=== PATIENT | female | born 1935 | race Caucasian/White ===

== ENCOUNTER → 2018-11-28 | Outpatient (CLI) | payer MEDICARE, OTHER ==
--- NOTE | 2018-11-28 11:01 | US ---
EXAMINATION TYPE: US carotid duplex BILAT DATE OF EXAM: 11/28/2018 COMPARISON: NONE CLINICAL HISTORY: I10 Hypertension, H53.2 Diplopia. Patient stated eye doctor stated she had eye musc le spasm. EXAM MEASUREMENTS: RIGHT: Peak Systolic Velocity (PSV) cm/sec ----- Right CCA: 70.2 ----- Right ICA: 92.1 ----- Right ECA: 49.1 ICA/CCA ratio: 1.3 RIGHT: End Diastole cm/sec ----- Right CCA: 12.1 ----- Right ICA: 16.1 ----- Right ECA: 0.0 LEFT: Peak Systolic Velocity (PSV) cm/sec ----- Left CCA: 60.1 ----- Left ICA: 74.7 ----- Left ECA: 44.8 ICA/CCA ratio: 1.2 LEFT: End Diastole cm/sec ----- Left CCA: 9.6 ----- Left ICA: 15.4 ----- Left ECA: 0.0 VERTEBRALS (direction of flow): Right Vertebral: Antegrade Left Vertebral: Antegrade Rhythm: Normal Irregular mixed plaque is present at bilateral carotid bifurcation, but PSV is wnl bilaterally. High resistive waveform is noted bilateral ICA suggesting distal cerebral bed disease. IMPRESSION: 1. There is concern for distal bilateral internal carotid artery stenosis as there are high resistanc e waveforms in the distal bilateral internal carotid arteries, not able to be visualized sonographica lly given its distal location. 2. No hemodynamically significant stenosis in the visualized portions of the common or internal carot id arteries. Criteria for Assigning % of Stenosis / Diameter reduction (Estimation based on the indirect measurements of the internal carotid artery velocities (ICA PSV). 1. Normal (no stenosis)=ICA PSV < 125 cm/s: ratio < 2.0: ICA EDV<40 cm/s. 2. Less than 50% stenosis=ICA PSV < 125 cm/s: ratio < 2.0: ICA EDV<40 cm/s. 3. 50 to 69% stenosis=ICA PSV of 125 to 230 cm/s: ration 2.0 ? 4.0: ICA EDV 40-100 cm/s. 4. Greater than 70% stenosis to near occlusion= ICA PSV > 230 cm/s: ratio > 4.0: ICA EDV > 100 cm/s. 5. Near occlusion= ICA PSV velocities may be low or undetectable: variable ratio and ICA EDV. 6. Total occlusion=unable to detect flow.
--- NOTE | 2018-11-28 12:00 | ECHOF ---
Referral Reason:I10 Hypertension, H53.2 Diplopia MEASUREMENTS -------- HEIGHT: 154.9 cm WEIGHT: 53.1 kg BP: RVIDd: 2.2 cm (< 3.3) IVSd: 1.0 cm (0.6 - 1.1) LVIDd: 3.7 cm (3.9 - 5.3) LVPWd: 1.1 cm (0.6 - 1.1) IVSs: 1.5 cm LVIDs: 2.4 cm LVPWs: 1.3 cm LAESV Index (A-L): 29.80 ml/m Ao Diam: 2.6 cm (2.0 - 3.7) AV Cusp: 1.5 cm (1.5 - 2.6) LA Diam: 3.6 cm (2.7 - 3.8) MV EXCURSION: 13.341 mm (> 18.000) MV EF SLOPE: 47 mm/s (70 - 150) EPSS: 0.9 cm MV E Osmel: 0.79 m/s MV DecT: 239 ms MV A Osmel: 1.07 m/s MV E/A Ratio: 0.74 AR PHT: 419 ms RAP: 5.00 mmHg RVSP: 36.82 mmHg FINDINGS -------- Sinus rhythm. This was a technically good study. The left ventricular size is normal. There is mild concentric left ventricular hypertrophy. Overa ll left ventricular systolic function is low-normal with, an EF between 50 - 55 %. Increased LAP Gr sabas 2 Diastolic Dysfunction. The right ventricle is normal in size. LA is midly dilated 29-33ml/m2. The right atrial size is normal. Interatrial and interventricular septum intact. Aortic valve is trileaflet and is mildly thickened. Trace amount of aortic regurgitation. The mitral valve is normal. Moderate mitral regurgitation is present , predominately a posteriorly directed jet. The tricuspid valve appears structurally normal. Mild tricuspid regurgitation present. There is b orderline pulmonary hypertension. There is no pulmonic regurgitation present. The aortic root size is normal. Normal inferior vena cava with normal inspiratory collapse consistent with estimated right atrial pre ssure of 5 mmHg. There is no pericardial effusion. CONCLUSIONS -------- 1. Sinus rhythm. 2. This was a technically good study. 3. The left ventricular size is normal. 4. There is mild concentric left ventricular hypertrophy. 5. Overall left ventricular systolic function is low-normal with, an EF between 50 - 55 %. 6. Increased LAP Grade 2 Diastolic Dysfunction. 7. The right ventricle is normal in size. 8. LA is midly dilated 29-33ml/m2. 9. The right atrial size is normal. 10. Interatrial and interventricular septum intact. 11. Aortic valve is trileaflet and is mildly thickened. 12. Trace amount of aortic regurgitation. 13. The mitral valve is normal. 14. Moderate mitral regurgitation is present. 15. , predominately a posteriorly directed jet. 16. The tricuspid valve appears structurally normal. 17. Mild tricuspid regurgitation present. 18. There is borderline pulmonary hypertension. 19. There is no pulmonic regurgitation present. 20. The aortic root size is normal. 21. Normal inferior vena cava with normal inspiratory collapse consistent with estimated right atrial pressure of 5 mmHg. 22. There is no pericardial effusion. BLOW MOLD TECHNICIAN: Cailin Mcintosh RDCS
== END | disposition home or self-care (01) ==
LOC: RADUSMAIN 08:36
PROVIDERS: ATTEND Family Medicine
DX: I11.9 Hypertensive heart disease without heart failure (principal); I08.1 Rheumatic disorders of both mitral and tricuspid valves; H53.2 Diplopia
CPT/HCPCS: 93306; 93880

== ENCOUNTER 2019-10-16 14:27 | Emergency (ER) | payer MEDICARE, OTHER ==
[2019-10-16 15:16] VITALS: TEMP 99
[2019-10-16] MEDS ORDERED: SODIUM CHLORIDE 0.9% 1,000 ML IV STA (15:50)
[2019-10-16] MEDS ORDERED: MECLIZINE 12.5 MG TAB PO STA (15:50)
--- NOTE | 2019-10-16 15:53 | ED ---
General Adult HPI - General Chief complaint: Recheck/Abnormal Lab/Rx Stated complaint: high blood pressure, dizzy Time Seen by Provider: 10/16/19 15:30 Source: patient, RN notes reviewed Mode of arrival: ambulatory Limitations: no limitations - History of Present Illness Initial comments: Patient is a pleasant 84-year-old female presenting to the emergency Department with complaints of lightheadedness. Patient states symptoms started 2 days ago. Patient states symptoms are present when she lays down and gets up to do anything. Otherwise patient does not feel lightheaded. Patient is currently symptom-free. Patient did go to her doctor's office today and have blood pressures between 140/70 and 200/100. No chest pain or dyspnea. No history of similar symptoms previously. - Related Data Allergies Allergy/AdvReac Type Severity Reaction Status Date / Time No Known Allergies Allergy Verified 10/16/19 15:16 Review of Systems ROS Statement: Those systems with pertinent positive or pertinent negative responses have been documented in the HPI. ROS Other: All systems not noted in ROS Statement are negative. Constitutional: Denies: fever Eyes: Denies: eye pain ENT: Denies: ear pain Respiratory: Denies: cough Cardiovascular: Denies: chest pain Endocrine: Denies: fatigue Gastrointestinal: Denies: abdominal pain Genitourinary: Denies: dysuria Musculoskeletal: Denies: back pain Skin: Denies: rash Neurological: Reports: as per HPI. Denies: headache, weakness, numbness, paresthesias, confusion, abnormal gait Past Medical History Past Medical History: Hypertension Additional Past Medical History / Comment(s): High Cholestrol. GERD. History of Any Multi-Drug Resistant Organisms: None Reported Past Surgical History: No Surgical Hx Reported Additional Past Surgical History / Comment(s): GI Obstruction - 70's. Parital Hysterctomy Smoking Status: Never smoker Past Alcohol Use History: None Reported Past Drug Use History: None Reported General Exam Limitations: no limitations General appearance: alert, in no apparent distress Head exam: Present: normocephalic Eye exam: Present: normal appearance, PERRL, EOMI, nystagmus ENT exam: Present: normal oropharynx, TM's normal bilaterally Neck exam: Present: normal inspection Respiratory exam: Present: normal lung sounds bilaterally Cardiovascular Exam: Present: regular rate, normal rhythm GI/Abdominal exam: Present: soft. Absent: tenderness Extremities exam: Present: normal inspection Neurological exam: Present: alert, oriented X3, CN II-XII intact. Absent: motor sensory deficit Expanded Neurological exam: Present: protecting the airway Patient oriented to: Present: person, place, time Speech: Present: fluid speech Cranial nerves: EOM's Intact: Normal Motor strength exam: RUE: 5, LUE: 5, RLE: 5, LLE: 5 Eye Response: (4) open spontaneously Motor Response: (6) obeys commands Verbal Response: (5) oriented Psychiatric exam: Present: normal affect, normal mood Skin exam: Present: normal color Course Vital Signs 10/16/19 10/16/19 15:12 16:03 Temperature 99.0 F Pulse Rate 76 Pulse Rate [ 75 Ex Chef ] Respiratory 18 18 Rate Blood Pressure 198/92 Blood Pressure 187/93 [Left Arm Sitting] Blood Pressure 181/91 [Left Arm Standing] Blood Pressure 190/97 [Left Arm Supine] O2 Sat by Pulse 75 L 95 Oximetry EKG Findings - EKG Comments: EKG Findings:: Normal sinus rhythm 71. DE 184. QRS 68. QT 32. QTC 4:15. Left axis. Normal QRS. No acute ST change. Medical Decision Making - Medical Decision Making Patient reevaluated and resting comfortably in bed. Patient states symptoms are mild and she does not feel she needs admission for further evaluation her head CT. Patient does request discharge home. Patient is advised to increase her by systolic by one half tab daily. Patient states she does have a Humberto to do this. Patient will follow-up with her doctor on Saturday as that is the next day there in the office and she has an appointment. Patient is advised she could use [id number] Antivert if needed. - Lab Data Result diagrams: 10/16/19 16:03 10/16/19 16:03 Lab Results 10/16/19 10/16/19 Range/Units 16:03 16:03 WBC 8.8 (3.8-10.6) k/uL RBC 4.19 (3.80-5.40) m/uL Hgb 13.4 (11.4-16.0) gm/dL Hct 39.8 (34.0-46.0) % MCV 95.0 (80.0-100.0) fL MCH 32.0 (25.0-35.0) pg MCHC 33.7 (31.0-37.0) g/dL RDW 11.8 (11.5-15.5) % Plt Count 193 (150-450) k/uL Neutrophils % 64 % Lymphocytes % 27 % Monocytes % 6 % Eosinophils % 1 % Basophils % 0 % Neutrophils # 5.7 (1.3-7.7) k/uL Lymphocytes # 2.3 (1.0-4.8) k/uL Monocytes # 0.5 (0-1.0) k/uL Eosinophils # 0.1 (0-0.7) k/uL Basophils # 0.0 (0-0.2) k/uL Sodium 138 (137-145) mmol/L Potassium 4.2 (3.5-5.1) mmol/L Chloride 102 (98-107) mmol/L Carbon Dioxide 25 (22-30) mmol/L Anion Gap 11 mmol/L BUN 19 H (7-17) mg/dL Creatinine 1.02 (0.52-1.04) mg/dL Est GFR (CKD-EPI)AfAm 59 (>60 ml/min/1.73 sqM) Est GFR (CKD-EPI)NonAf 51 (>60 ml/min/1.73 sqM) Glucose 105 H (74-99) mg/dL Calcium 10.4 H (8.4-10.2) mg/dL Total Bilirubin 0.9 (0.2-1.3) mg/dL AST 31 (14-36) U/L ALT 31 (4-34) U/L Alkaline Phosphatase 65 (38-126) U/L Total Protein 8.3 H (6.3-8.2) g/dL Albumin 5.2 H (3.5-5.0) g/dL Disposition Clinical Impression: Lightheadedness, Hypertension Disposition: HOME SELF-CARE Condition: Stable Instructions (If sedation given, give patient instructions): Hypertension (ED), Lightheadedness (ED) Additional Instructions: Please follow-up with Dr. Azeem Campbell as scheduled. [id number] Antivert if needed for dizziness. Please increased your by systolic by an additional half pill daily@noon. Return for confusion, weakness, increased lightheadedness or dizziness, falling, worsening symptoms or other concerns. Is patient prescribed a controlled substance at d/c from ED?: No Referrals: Brennen Gann MD [Primary Care Provider] - 1-2 days Time of Disposition: 16:43
[2019-10-16 16:17] LABS: Basophils % (A) 0 %; Eosinophils # (A) 0.1 k/uL (0-0.7); Eosinophils % (A) 1 %; HCT 39.8 % (34.0-46.0); HGB 13.4 gm/dL (11.4-16.0); Lymphocytes # (A) 2.3 k/uL (1.0-4.8); Lymphocytes % (A) 27 %; MCHC 33.7 g/dL (31.0-37.0); Mean Platelet Volume 7.5; Monocytes # (A) 0.5 k/uL (0-1.0); Monocytes % (A) 6 %; Neutrophils # (A) 5.7 k/uL (1.3-7.7); Neutrophils % (A) 64 %; Platelet Count 193 k/uL (150-450); RBC 4.19 m/uL (3.80-5.40); RDW 11.8 % (11.5-15.5); WBC 8.8 k/uL (3.8-10.6)
[2019-10-16 16:23] LABS: Albumin 5.2 g/dL (3.5-5.0); Calcium 10.4 mg/dL (8.4-10.2); Potassium 4.2 mmol/L (3.5-5.1); Total Bilirubin 0.9 mg/dL (0.2-1.3); Total Protein 8.3 g/dL (6.3-8.2)
[2019-10-16] MEDS ORDERED: NEBIVOLOL 5 MG TAB PO STA (16:37)
[2019-10-16 17:05] VITALS: BP 181/91; PULSE 80; RESP 16
[2019-10-16 17:16] LABS: Appearance,Urine Clear (Clear); Bilirubin,Urine Negative (Negative); Blood,Urine Negative (Negative); Color,Urine Light Yellow; Glucose,Urine (UA) Negative (Negative); Ketones,Urine Negative (Negative); Leukocyte Esterase,Urine Small (Negative); Mucus,Urine Rare /hpf; Nitrite,Urine Negative (Negative); Protein,Urine Negative (Negative); RBC,Urine <1 /hpf (0-5); Specific Gravity,Urine 1.004 (1.001-1.035); Urobilinogen,Urine <2.0 mg/dL (<2.0); WBC,Urine 2 /hpf (0-5)
== END 2019-10-16 17:19 | disposition home or self-care (01) ==
LOC: EC 14:27
DX: I10 Essential (primary) hypertension (principal); R42 Dizziness and giddiness
CPT/HCPCS: 36415; 80053; 81001; 85025; 93005; 96360; 99284

== ENCOUNTER 2020-03-27 12:07 | Emergency (ER) | payer MEDICARE, OTHER ==
[2020-03-27] MEDS ORDERED: SODIUM CHLORIDE 0.9% 1,000 ML IV STA (12:47)
[2020-03-27 13:24] LABS: Basophils # (A) 0.1 k/uL (0-0.2); Basophils % (A) 1 %; Eosinophils # (A) 0.1 k/uL (0-0.7); Eosinophils % (A) 1 %; HCT 37.8 % (34.0-46.0); HGB 13.3 gm/dL (11.4-16.0); Lymphocytes # (A) 1.8 k/uL (1.0-4.8); Lymphocytes % (A) 13 %; MCHC 35.2 g/dL (31.0-37.0); MCV 93.7 fL (80.0-100.0); Mean Platelet Volume 7.3; Monocytes # (A) 0.7 k/uL (0-1.0); Monocytes % (A) 5 %; Neutrophils # (A) 10.8 k/uL (1.3-7.7); Neutrophils % (A) 79 %; Platelet Count 199 k/uL (150-450); RBC 4.04 m/uL (3.80-5.40); RDW 11.7 % (11.5-15.5); WBC 13.7 k/uL (3.8-10.6)
[2020-03-27 13:33] LABS: Albumin 4.7 g/dL (3.5-5.0); Calcium 9.9 mg/dL (8.4-10.2); Potassium 3.9 mmol/L (3.5-5.1); Total Bilirubin 1.2 mg/dL (0.2-1.3); Total Protein 7.8 g/dL (6.3-8.2)
[2020-03-27 13:42] LABS: Partial Thromboplastin Time 25.3 sec (22.0-30.0); Prothrombin Time 10.7 sec (9.0-12.0)
--- NOTE | 2020-03-27 14:11 | ED ---
GI Bleed HPI - General Chief complaint: GI Bleed Stated complaint: rectal bleeding Time Seen by Provider: 03/27/20 12:25 Source: patient Mode of arrival: wheelchair Limitations: no limitations - History of Present Illness Initial comments: 85-year-old female with history of 2 bloody stools. Patient states she had some blood in her stool last night she stated she had another episode of blood in her stool this morning. Patient states this morning it seemed to be better. Patient said she's history of hemorrhoids. She denies history of hospitalizatio n for GI bleed. Patient denies any lightheadedness chest pain shortness of breath she denies any presyncope syncopal episodes. Patient denies any palpitations cold intolerance. Patient denies any nausea vomiting abdominal pains at the known history of diverticulosis or polyps. Patient states she has never had a colonoscopy in her life. Patient denies additional complaints she states she's had no additional episodes she has no urge for a bowel movement. Upon arrival patient appears well and nontoxic blood pressure elevated no tachycardia. - Related Data Allergies Allergy/AdvReac Type Severity Reaction Status Date / Time No Known Allergies Allergy Verified 03/27/20 12:15 Review of Systems ROS Statement: Those systems with pertinent positive or pertinent negative responses have been documented in the HPI. ROS Other: All systems not noted in ROS Statement are negative. Past Medical History Past Medical History: Hyperlipidemia, Hypertension Additional Past Medical History / Comment(s): High Cholestrol. GERD. History of Any Multi-Drug Resistant Organisms: None Reported Past Surgical History: No Surgical Hx Reported Additional Past Surgical History / Comment(s): GI Obstruction - 70's. Parital Hysterctomy Smoking Status: Never smoker Past Alcohol Use History: None Reported Past Drug Use History: None Reported General Exam - General Exam Comments Initial Comments: General: The patient is awake and alert, in no distress Eye: +3 mm pupils are equal, round and reactive to light, extra-ocular movements are intact. No nystagmus. There is normal conjunctiva bilaterally. No signs of icterus. Ears, nose, mouth and throat: There are moist mucous membranes and no oral lesions. Neck: The neck is supple, there is no tenderness or JVD. Cardiovascular: There is a regular rate and rhythm. No murmur, rub or gallop is appreciated. Respiratory: Lungs are clear to auscultation, respirations are non-labored, breath sounds are equal. No wheezes, stridor, rales, or rhonchi. Gastrointestinal: Soft, non-distended, non-tender abdomen without masses or organomegaly noted. There is no rebound or guarding present. : rectal. no blood, light brown stool, palpable nontender internal hemmorhoid. Musculoskeletal: Normal ROM, no tenderness. Strength 5/5. Sensation intact. Radial pulses equal bilaterally 2+. Neurological: A&O x 3. CN II-XII intact, There are no obvious motor or sensory deficits. Coordination appears grossly intact. Speech is normal. Skin: Skin is warm and dry and no rashes or lesions are noted. Psychiatric: Cooperative, appropriate mood & affect, normal judgment. Limitations: no limitations Course Vital Signs 03/27/20 03/27/20 03/27/20 12:17 13:21 14:54 Temperature 99.4 F 98.9 F Pulse Rate 74 76 72 Respiratory 18 18 16 Rate Blood Pressure 190/85 183/87 182/100 O2 Sat by Pulse 97 97 98 Oximetry Medical Decision Making - Medical Decision Making 85-year-old female presenting for GI bleeding. Palpable hemorrhoid on examination. Patient is no abdominal pain. Patient is not tachycardic her hemoglobin is within acceptable limits. Patient does not have elevation of BUN and creatinine. She has no bright red blood per rectum on physical examination. Occult is positive. Patient never had a colonoscopy. Patient had no additional episodes throughout her visit in the emergency department. Patient has a low Redding score for lower GI bleed. At this time family and patient are agreeable discharge with strict return parameters if she is another additional episode of blood in her stool she is to immediate return to the emergency dep artment for admission and further evaluation. The patient case discussed by attending provider Dr. Dennis who is agreeable to this care plan at discharge at this time. - Lab Data Result diagrams: 03/27/20 13:16 03/27/20 13:16 Lab Results 03/27/20 03/27/20 03/27/20 Range/Units 13:16 13:16 13:16 WBC 13.7 H (3.8-10.6) k/uL RBC 4.04 (3.80-5.40) m/uL Hgb 13.3 (11.4-16.0) gm/dL Hct 37.8 (34.0-46.0) % MCV 93.7 (80.0-100.0) fL MCH 33.0 (25.0-35.0) pg MCHC 35.2 (31.0-37.0) g/dL RDW 11.7 (11.5-15.5) % Plt Count 199 (150-450) k/uL MPV 7.3 Neutrophils % 79 % Lymphocytes % 13 % Monocytes % 5 % Eosinophils % 1 % Basophils % 1 % Neutrophils # 10.8 H (1.3-7.7) k/uL Lymphocytes # 1.8 (1.0-4.8) k/uL Monocytes # 0.7 (0-1.0) k/uL Eosinophils # 0.1 (0-0.7) k/uL Basophils # 0.1 (0-0.2) k/uL PT 10.7 (9.0-12.0) sec INR 1.0 (<1.2) APTT 25.3 (22.0-30.0) sec Sodium (137-145) mmol/L Potassium (3.5-5.1) mmol/L Chloride (98-107) mmol/L Carbon Dioxide (22-30) mmol/L Anion Gap mmol/L BUN (7-17) mg/dL Creatinine (0.52-1.04) mg/dL Est GFR (CKD-EPI)AfAm (>60 ml/min/1.73 sqM) Est GFR (CKD-EPI)NonAf (>60 ml/min/1.73 sqM) Glucose (74-99) mg/dL Plasma Lactic Acid Shaji (0.7-2.0) mmol/L Calcium (8.4-10.2) mg/dL Total Bilirubin (0.2-1.3) mg/dL AST (14-36) U/L ALT (4-34) U/L Alkaline Phosphatase (38-126) U/L Troponin I (0.000-0.034) ng/mL Total Protein (6.3-8.2) g/dL Albumin (3.5-5.0) g/dL Stool Occult Blood Positive H (Negative) Blood Type Blood Type Recheck Bld Type Recheck Status Antibody Screen Spec Expiration Date 01/06/1203/27/20 03/27/20 Range/Units 13:16 13:16 13:16 WBC (3.8-10.6) k/uL RBC (3.80-5.40) m/uL Hgb (11.4-16.0) gm/dL Hct (34.0-46.0) % MCV (80.0-100.0) fL MCH (25.0-35.0) pg MCHC (31.0-37.0) g/dL RDW (11.5-15.5) % Plt Count (150-450) k/uL MPV Neutrophils % % Lymphocytes % % Monocytes % % Eosinophils % % Basophils % % Neutrophils # (1.3-7.7) k/uL Lymphocytes # (1.0-4.8) k/uL Monocytes # (0-1.0) k/uL Eosinophils # (0-0.7) k/uL Basophils # (0-0.2) k/uL PT (9.0-12.0) sec INR (<1.2) APTT (22.0-30.0) sec Sodium 137 (137-145) mmol/L Potassium 3.9 (3.5-5.1) mmol/L Chloride 103 (98-107) mmol/L Carbon Dioxide 26 (22-30) mmol/L Anion Gap 8 mmol/L BUN 18 H (7-17) mg/dL Creatinine 0.97 (0.52-1.04) mg/dL Est GFR (CKD-EPI)AfAm 62 (>60 ml/min/1.73 sqM) Est GFR (CKD-EPI)NonAf 54 (>60 ml/min/1.73 sqM) Glucose 124 H (74-99) mg/dL Plasma Lactic Acid Shaji 1.6 (0.7-2.0) mmol/L Calcium 9.9 (8.4-10.2) mg/dL Total Bilirubin 1.2 (0.2-1.3) mg/dL AST 29 (14-36) U/L ALT 29 (4-34) U/L Alkaline Phosphatase 59 (38-126) U/L Troponin I <0.012 (0.000-0.034) ng/mL Total Protein 7.8 (6.3-8.2) g/dL Albumin 4.7 (3.5-5.0) g/dL Stool Occult Blood (Negative) Blood Type Blood Type Recheck Bld Type Recheck Status Antibody Screen Spec Expiration Date 03/27/20 Range/Units 13:16 WBC (3.8-10.6) k/uL RBC (3.80-5.40) m/uL Hgb (11.4-16.0) gm/dL Hct (34.0-46.0) % MCV (80.0-100.0) fL MCH (25.0-35.0) pg MCHC (31.0-37.0) g/dL RDW (11.5-15.5) % Plt Count (150-450) k/uL MPV Neutrophils % % Lymphocytes % % Monocytes % % Eosinophils % % Basophils % % Neutrophils # (1.3-7.7) k/uL Lymphocytes # (1.0-4.8) k/uL Monocytes # (0-1.0) k/uL Eosinophils # (0-0.7) k/uL Basophils # (0-0.2) k/uL PT (9.0-12.0) sec INR (<1.2) APTT (22.0-30.0) sec Sodium (137-145) mmol/L Potassium (3.5-5.1) mmol/L Chloride (98-107) mmol/L Carbon Dioxide (22-30) mmol/L Anion Gap mmol/L BUN (7-17) mg/dL Creatinine (0.52-1.04) mg/dL Est GFR (CKD-EPI)AfAm (>60 ml/min/1.73 sqM) Est GFR (CKD-EPI)NonAf (>60 ml/min/1.73 sqM) Glucose (74-99) mg/dL Plasma Lactic Acid Shaji (0.7-2.0) mmol/L Calcium (8.4-10.2) mg/dL Total Bilirubin (0.2-1.3) mg/dL AST (14-36) U/L ALT (4-34) U/L Alkaline Phosphatase (38-126) U/L Troponin I (0.000-0.034) ng/mL Total Protein (6.3-8.2) g/dL Albumin (3.5-5.0) g/dL Stool Occult Blood (Negative) Blood Type O Positive Blood Type Recheck No Previous Record Bld Type Recheck Status CABO Indicated Antibody Screen NEGATIVE Spec Expiration Date 03/30/20202346 Disposition Clinical Impression: Rectal bleeding Disposition: HOME SELF-CARE Condition: Good Instructions (If sedation given, give patient instructions): Gastrointestinal Bleeding (ED) Additional Instructions: Please use medication as discussed. Please follow-up with family doctor in the next 2 days, recommend outpatient GI follow-up. If bleeding happens a third time immediate return to the ER. Please return to emergency room if the symptoms increase or worsen or for any other concerns. Is patient prescribed a controlled substance at d/c from ED?: No Referrals: Brennen Gann MD [Primary Care Provider] - 1-2 days Rylan Choe MD [STAFF PHYSICIAN] - 1-2 days Time of Disposition: 14:10
[2020-03-27 14:56] VITALS: BP 182/100; PULSE 72; RESP 16; TEMP 98.9
== END 2020-03-27 14:56 | disposition home or self-care (01) ==
LOC: EC 12:07
DX: K92.1 Melena (principal)
CPT/HCPCS: 36415; 80053; 82272; 83605; 84484; 85025; 85610; 85730; 86850; 86900; 86901; 96361; 96374; 99284

== ENCOUNTER 2020-03-28 09:10 | Observation (INO) | payer MEDICARE, OTHER ==
[2020-03-28] MEDS ORDERED: SODIUM CHLORIDE 0.9% 500 ML 500 ML IV ONE (09:30)
--- NOTE | 2020-03-28 09:34 | ED ---
GI Bleed HPI - General Source: patient, family Mode of arrival: ambulatory Limitations: no limitations <Faiza Holley - Last Filed: 03/28/20 11:05> <Celeste Balderas - Last Filed: 03/31/20 00:38> - General Chief complaint: GI Bleed Stated complaint: revisit - rectal bleeding Time Seen by Provider: 03/28/20 09:17 - History of Present Illness Initial comments: 85yo female presenting for GI bleed. pt states she had two bloody stools yesterday was evaluated and discharge. pt states she had an additional that evening but didnt feel like returning. pt has two additional episodes of bright red stool. denies rectal pain. denies vaginal bleeding or abdominal pain. Denies dyspnea, pallor or palpitations cold intolerance. endorses some mild weakness. no additional complaints. (Faiza Holley) - Related Data Home Medications Medication Instructions Recorded Confirmed Atorvastatin [Lipitor] 20 mg PO PC-SUPPER 03/28/20 03/28/20 Esomeprazole Magnesium 20 mg PO AC-SUPPER 03/28/20 03/28/20 Garlic 1 tab PO PC-SUPPER 03/28/20 03/28/20 Nebivolol HCl [Bystolic] 10 mg PO DAILY@0800 03/28/20 03/28/20 [place]-3 Fatty Acids/Fish Oil [Fish 1 cap PO PC-SUPPER 03/28/20 03/28/20 Oil 1,000 mg Softgel] Vitamin C(Unknown) 1 tab PO PC-SUPPER 03/28/20 03/28/20 Vitamin D3(Unknown) 1 tab PO PC-SUPPER 03/28/20 03/28/20 lisinopriL [Zestril] 2.5 mg PO DAILY@0800 03/28/20 03/28/20 Allergies Allergy/AdvReac Type Severity Reaction Status Date / Time No Known Allergies Allergy Verified 03/28/20 09:56 Review of Systems ROS Other: All systems not noted in ROS Statement are negative. <Faiza Holley - Last Filed: 03/28/20 11:05> ROS Other: All systems not noted in ROS Statement are negative. <Celeste Balderas - Last Filed: 03/31/20 00:38> ROS Statement: Those systems with pertinent positive or pertinent negative responses have been documented in the HPI. Past Medical History Past Medical History: GERD/Reflux, Hyperlipidemia, Hypertension Additional Past Medical History / Comment(s): bloody stools, poor kidney function History of Any Multi-Drug Resistant Organisms: None Reported Past Surgical History: Hysterectomy Additional Past Surgical History / Comment(s): GI Obstruction - 70's Past Psychological History: No Psychological Hx Reported Smoking Status: Never smoker Past Alcohol Use History: None Reported Past Drug Use History: None Reported <Faiza Holley - Last Filed: 03/28/20 11:05> General Exam Limitations: no limitations <Faiza Holley - Last Filed: 03/28/20 11:05> - General Exam Comments Initial Comments: General: The patient is awake and alert, in no distress Eye: Pupils are equal, round and reactive to light, extra-ocular movements are intact. No nystagmus. There is normal conjunctiva bilaterally. No signs of icterus. Ears, nose, mouth and throat: There are moist mucous membranes and no oral lesions. Neck: The neck is supple, there is no tenderness or JVD. Cardiovascular: There is a regular rate and rhythm. No murmur, rub or gallop is appreciated. Respiratory: Lungs are clear to auscultation, respirations are non-labored, breath sounds are equal. No wheezes, stridor, rales, or rhonchi. Gastrointestinal: Soft, non-distended, non-tender abdomen without masses or organomegaly noted. There is no rebound or guarding present. Musculoskeletal: Normal ROM, no tenderness. Strength 5/5. Sensation intact. Radial pulses equal bilaterally 2+. Neurological: A&O x 3. CN II-XII intact grossly, There are no obvious motor or sensory deficits. Coordination appears grossly intact. Speech is normal. Skin: Skin is warm and dry and no rashes or lesions are noted. Psychiatric: Cooperative, appropriate mood & affect, normal judgment. (Faiza Holley) Course Vital Signs 03/28/20 03/28/20 03/28/20 09:15 11:20 17:04 Temperature 97.9 F Pulse Rate 77 71 86 Respiratory 18 16 16 Rate Blood Pressure 158/78 152/79 159/72 O2 Sat by Pulse 96 97 97 Oximetry Medical Decision Making - Lab Data Result diagrams: 03/28/20 09:37 03/28/20 09:37 <Faiza Holley - Last Filed: 03/28/20 11:05> - Lab Data Result diagrams: 03/29/20 07:44 03/29/20 07:44 <Celeste Balderas - Last Filed: 03/31/20 00:38> - Medical Decision Making Hgb remains stable. given advanced age, no hx of colonoscopy, additional episodes despite non-bloody rectal exam ysterday the pt will be admitted for GI consultation, serial CBC. Patient is agreeable to admission and care plan. Dr. Pedraza accepted. Dr. Balderas agreeable to care plan. (Faiza Holley) I was available for consultation in the emergency department. The history and physical exam were done by the midlevel provider. I was consulted for this patients care. I reviewed the case with the midlevel provider and based on their presentation of the patient, I agree with the assessment, medical decision making and plan of care as documented. Chart was dictated using [employer] dictation software. Attempts were made to correct any dictation errors however some typographical errors may persist. Patient was seen during a national state of emergency due to the Covid-19 pandemic. (Celeste Balderas) - Lab Data Lab Results 03/28/20 03/28/20 03/28/20 Range/Units 09:37 09:37 09:37 WBC 14.5 H (3.8-10.6) k/uL RBC 4.11 (3.80-5.40) m/uL Hgb 13.1 (11.4-16.0) gm/dL Hct 39.7 (34.0-46.0) % MCV 96.5 (80.0-100.0) fL MCH 31.9 (25.0-35.0) pg MCHC 33.1 (31.0-37.0) g/dL RDW 12.2 (11.5-15.5) % Plt Count 217 (150-450) k/uL MPV 7.4 Neutrophils % 79 % Lymphocytes % 13 % Monocytes % 4 % Eosinophils % 1 % Basophils % 0 % Neutrophils # 11.5 H (1.3-7.7) k/uL Lymphocytes # 1.9 (1.0-4.8) k/uL Monocytes # 0.6 (0-1.0) k/uL Eosinophils # 0.2 (0-0.7) k/uL Basophils # 0.0 (0-0.2) k/uL PT 10.6 (9.0-12.0) sec INR 1.0 (<1.2) APTT 25.5 (22.0-30.0) sec Sodium 138 (137-145) mmol/L Potassium 3.9 (3.5-5.1) mmol/L Chloride 103 (98-107) mmol/L Carbon Dioxide 26 (22-30) mmol/L Anion Gap 9 mmol/L BUN 16 (7-17) mg/dL Creatinine 1.01 (0.52-1.04) mg/dL Est GFR (CKD-EPI)AfAm 59 (>60 ml/min/1.73 sqM) Est GFR (CKD-EPI)NonAf 51 (>60 ml/min/1.73 sqM) Glucose 145 H (74-99) mg/dL Plasma Lactic Acid Shaji (0.7-2.0) mmol/L Calcium 9.7 (8.4-10.2) mg/dL Total Bilirubin 1.4 H (0.2-1.3) mg/dL AST 26 (14-36) U/L ALT 25 (4-34) U/L Alkaline Phosphatase 51 (38-126) U/L Troponin I (0.000-0.034) ng/mL Total Protein 7.8 (6.3-8.2) g/dL Albumin 4.7 (3.5-5.0) g/dL 03/28/20 03/28/20 Range/Units 09:37 09:37 WBC (3.8-10.6) k/uL RBC (3.80-5.40) m/uL Hgb (11.4-16.0) gm/dL Hct (34.0-46.0) % MCV (80.0-100.0) fL MCH (25.0-35.0) pg MCHC (31.0-37.0) g/dL RDW (11.5-15.5) % Plt Count (150-450) k/uL MPV Neutrophils % % Lymphocytes % % Monocytes % % Eosinophils % % Basophils % % Neutrophils # (1.3-7.7) k/uL Lymphocytes # (1.0-4.8) k/uL Monocytes # (0-1.0) k/uL Eosinophils # (0-0.7) k/uL Basophils # (0-0.2) k/uL PT (9.0-12.0) sec INR (<1.2) APTT (22.0-30.0) sec Sodium (137-145) mmol/L Potassium (3.5-5.1) mmol/L Chloride (98-107) mmol/L Carbon Dioxide (22-30) mmol/L Anion Gap mmol/L BUN (7-17) mg/dL Creatinine (0.52-1.04) mg/dL Est GFR (CKD-EPI)AfAm (>60 ml/min/1.73 sqM) Est GFR (CKD-EPI)NonAf (>60 ml/min/1.73 sqM) Glucose (74-99) mg/dL Plasma Lactic Acid Shaji 1.3 (0.7-2.0) mmol/L Calcium (8.4-10.2) mg/dL Total Bilirubin (0.2-1.3) mg/dL AST (14-36) U/L ALT (4-34) U/L Alkaline Phosphatase (38-126) U/L Troponin I <0.012 (0.000-0.034) ng/mL Total Protein (6.3-8.2) g/dL Albumin (3.5-5.0) g/dL Disposition Is patient prescribed a controlled substance at d/c from ED?: No Time of Disposition: 10:06 Decision to Admit Reason: Admit from EC Decision Date: 03/28/20 Decision Time: 10:06 <Faiza Holley - Last Filed: 03/28/20 11:05> <Celeste Balderas - Last Filed: 03/31/20 00:38> Clinical Impression: Rectal bleeding, Hx of hemorrhoids Disposition: ADMITTED IP TO THIS [facility] Condition: Stable
[2020-03-28] MEDS: SODIUM CHLORIDE 0.9% 1,000 ML IV SCH ×2 (09:54→22:50)
[2020-03-28 09:58] LABS: Basophils % (A) 0 %; Eosinophils # (A) 0.2 k/uL (0-0.7); Eosinophils % (A) 1 %; HCT 39.7 % (34.0-46.0); HGB 13.1 gm/dL (11.4-16.0); Lymphocytes # (A) 1.9 k/uL (1.0-4.8); Lymphocytes % (A) 13 %; MCH 31.9 pg (25.0-35.0); MCHC 33.1 g/dL (31.0-37.0); MCV 96.5 fL (80.0-100.0); Mean Platelet Volume 7.4; Monocytes # (A) 0.6 k/uL (0-1.0); Monocytes % (A) 4 %; Neutrophils # (A) 11.5 k/uL (1.3-7.7); Neutrophils % (A) 79 %; Platelet Count 217 k/uL (150-450); RBC 4.11 m/uL (3.80-5.40); RDW 12.2 % (11.5-15.5); WBC 14.5 k/uL (3.8-10.6)
[2020-03-28 10:01] LABS: Partial Thromboplastin Time 25.5 sec (22.0-30.0); Prothrombin Time 10.6 sec (9.0-12.0)
[2020-03-28 10:04] LABS: Albumin 4.7 g/dL (3.5-5.0); Calcium 9.7 mg/dL (8.4-10.2); Potassium 3.9 mmol/L (3.5-5.1); Total Bilirubin 1.4 mg/dL (0.2-1.3); Total Protein 7.8 g/dL (6.3-8.2)
[2020-03-28] MEDS ORDERED: NALOXONE 0.4 MG/ML 1 ML VIAL IV PRN (10:04)
[2020-03-28] MEDS ORDERED: PANTOPRAZOLE 40 MG/10 ML VIAL IVP STA (11:07)
[2020-03-28 11:20] VITALS: RESP 16
--- NOTE | 2020-03-28 12:04 | P.HPIM ---
History of Present Illness 85-year-old female came in with complaints of blood in the stools was started 2 days ago patient was seen in ER patient hemoglobin remained stable because of which patient was discharged home resting the patient had minimal very minimal GI bleed probably secondary to hemorrhoids. Patient can use to see some blood with bowel movement on toilet paper which although significantly lessened compared to couple days ago.Patient denied any fever chills nausea vomiting abdominal pain dysuria. Patient hemoglobin is stable at around 30 and no significant change compared to couple days ago. Patient never had colonoscopy in the past. Review of Systems REVIEW OF SYSTEMS: CONSTITUTIONAL: No fever, no malaise, no fatigue. HEENT: No recent visual problems or hearing problems. Denied any sore throat. CARDIOVASCULAR: No chest pain, orthopnea, PND, no palpitations, no syncope. PULMONARY: No shortness of breath, no cough, no hemoptysis. GASTROINTESTINAL: No diarrhea, no nausea, no vomiting, no abdominal pain. NEUROLOGICAL: No headaches, no weakness, no numbness. HEMATOLOGICAL: Denies any bleeding or petechiae. GENITOURINARY: Denies any burning micturition, frequency, or urgency. MUSCULOSKELETAL/RHEUMATOLOGICAL: Denies any joint pain, swelling, or any muscle pain. ENDOCRINE: Denies any polyuria or polydipsia. The rest of the 14-point review of systems is negative. Past Medical History Past Medical History: GERD/Reflux, Hyperlipidemia, Hypertension Additional Past Medical History / Comment(s): bloody stools, poor kidney function History of Any Multi-Drug Resistant Organisms: None Reported Past Surgical History: Hysterectomy Additional Past Surgical History / Comment(s): GI Obstruction - 70's Past Psychological History: No Psychological Hx Reported Smoking Status: Never smoker Past Alcohol Use History: None Reported Past Drug Use History: None Reported Medications and Allergies Home Medications Medication Instructions Recorded Confirmed Type Atorvastatin [Lipitor] 20 mg PO PC-SUPPER 03/28/20 03/28/20 History Esomeprazole Magnesium 20 mg PO AC-SUPPER 03/28/20 03/28/20 History Garlic 1 tab PO PC-SUPPER 03/28/20 03/28/20 History Nebivolol HCl [Bystolic] 10 mg PO DAILY@0800 03/28/20 03/28/20 History [place]-3 Fatty Acids/Fish Oil [Fish 1 cap PO PC-SUPPER 03/28/20 03/28/20 History Oil 1,000 mg Softgel] Vitamin C(Unknown) 1 tab PO PC-SUPPER 03/28/20 03/28/20 History Vitamin D3(Unknown) 1 tab PO PC-SUPPER 03/28/20 03/28/20 History lisinopriL [Zestril] 2.5 mg PO DAILY@0800 03/28/20 03/28/20 History Allergies Allergy/AdvReac Type Severity Reaction Status Date / Time No Known Allergies Allergy Verified 03/28/20 09:56 Physical Exam Vitals: Vital Signs Temp Pulse Resp BP Pulse Ox 03/28/20 11:20 71 16 152/79 97 03/28/20 09:15 97.9 F 77 18 158/78 96 Intake and Output 03/27/20 03/28/20 03/28/20 22:59 06:59 14:59 Other: Weight 55.338 kg PHYSICAL EXAMINATION: GENERAL: The patient is alert and oriented x3, not in any acute distress. Well developed, well nourished. HEENT: Pupils are round and equally reacting to light. EOMI. No scleral icterus. No conjunctival pallor. Normocephalic, atraumatic. No pharyngeal erythema. No thyromegaly. CARDIOVASCULAR: S1 and S2 present. No murmurs, rubs, or gallops. PULMONARY: Chest is clear to auscultation, no wheezing or crackles. ABDOMEN: Soft, nontender, nondistended, normoactive bowel sounds. No palpable organomegaly. I didn't personally perform rectal exam but rectal exam and that was done by ER physician didn't show any external hemorrhoids MUSCULOSKELETAL: No joint swelling or deformity. EXTREMITIES: No cyanosis, clubbing, or pedal edema. NEUROLOGICAL: Gross neurological examination did not reveal any focal deficits. SKIN: No rashes. Results CBC & Chem 7: 03/28/20 09:37 03/28/20 09:37 Labs: Abnormal Lab Results - Last 24 Hours (Table) 03/28/20 03/28/20 Range/Units 09:37 09:37 WBC 14.5 H (3.8-10.6) k/uL Neutrophils # 11.5 H (1.3-7.7) k/uL Glucose 145 H (74-99) mg/dL Total Bilirubin 1.4 H (0.2-1.3) mg/dL Assessment and Plan Plan: -Acute lower GI bleed: He appears to have minimal bleed and may be secondary to hemorrhoids gastro-oncology will be consulted. -Gastroesophageal reflux disease: Continue with the Protonix -Hypertension -Hyperlipidemia For above-mentioned chronic medical problems patient will be resumed on appropriate home medications.
[2020-03-28] MEDS ORDERED: PEG 3350-NA SULF,BICARB,CL/KCL 4,000 ML BOTTLE PO ONE (13:35)
--- NOTE | 2020-03-28 14:58 | CONS ---
CONSULTATION DATE OF DICTATION: March 28, 2020 REASON FOR CONSULTATION: Rectal bleeding. HISTORY OF PRESENT ILLNESS: The patient is an 85-year-old pleasant white female came to the emergency room 2 days ago complaining of rectal bleeding of one day duration. She was seen in the ER. Her hemoglobin was stable. She was discharged to home and was told to return to the ER if she has further bleeding. She went home 2 days ago yesterday had 3 episodes of bright red blood per rectum and became concerned and came back to the emergency room and now admitted to the observation for further evaluation. No prior history of colonoscopy in the past. She denies any history of constipation. No abdominal pain. No nausea, no vomiting. No family history of colorectal neoplasia. She never had a colonoscopy in the past. PAST MEDICAL HISTORY: Significant for hypertension, hyperlipidemia, gastroesophageal reflux disease. PAST SURGICAL HISTORY: Hysterectomy. MEDICATIONS: Medications at home include Bystolic, Lipitor, esomeprazole, vitamin D3, vitamin C, and Zestril. ALLERGIES: None. SOCIAL HISTORY: No smoking, no alcohol use. FAMILY HISTORY: Unremarkable. REVIEW OF SYSTEMS: CARDIOPULMONARY: No chest pain. No shortness of breath. GENITOURINARY: No dysuria or hematuria. MUSCULOSKELETAL: Unremarkable. SKIN: Unremarkable. ENDOCRINE: Unremarkable. PSYCHIATRIC: Unremarkable. NEUROLOGY: Unremarkable. ENT/VISION: Unremarkable. CONSTITUTIONAL: No recent weight loss. No fever, chills, night sweats. PHYSICAL EXAMINATION: She appears comfortable. Vital signs are stable. Blood pressure is 102/79, pulse rate is 71, temperature 97.9. HEENT EXAMINATION: Unremarkable. Conjunctivae pink. Sclerae anicteric. Oral cavity, no lesions. NECK: No JVD or lymph node enlargement. CHEST: Was clear to auscultation. HEART: Regular rate and rhythm. ABDOMEN: Soft. Bowel sounds are positive. No organomegaly. EXTREMITIES: No pedal edema. NEUROLOGIC: Alert and oriented x3. No focal deficits. LABS: WBC 14.5, hemoglobin 13.1, platelets normal. Basic metabolic panel is within normal limits. Blood sugar was 145. IMPRESSION: 1. Rectal bleeding for the last 3 days duration, possibly related to internal hemorrhoids, but cannot rule out other colonic pathology. The patient is hemodynamically stable. No active bleeding. She had small amount of bright red blood per rectum for the last 2 days duration. Hemoglobin stable at 13.5 g/dL. 2. History of hypertension and hyperlipidemia. RECOMMENDATIONS: 1. Start her on clear liquid diet. 2. Proceed with colonoscopy tomorrow. Discussed with the patient, risks, benefits and complications of the procedure and she is agreeable to it. Thank you for this consultation. ANTONELLA / BRADLEY: [id number] /
[2020-03-28 17:28] LABS: Basophils % (A) 0 %; Eosinophils # (A) 0.1 k/uL (0-0.7); Eosinophils % (A) 1 %; HCT 23.3 % (34.0-46.0); Lymphocytes # (A) 1.4 k/uL (1.0-4.8); Lymphocytes % (A) 20 %; MCH 34.2 pg (25.0-35.0); MCHC 35.3 g/dL (31.0-37.0); MCV 96.8 fL (80.0-100.0); Mean Platelet Volume 7.4; Monocytes # (A) 0.5 k/uL (0-1.0); Monocytes % (A) 7 %; Neutrophils # (A) 4.8 k/uL (1.3-7.7); Neutrophils % (A) 70 %; Platelet Count 132 k/uL (150-450); RDW 11.7 % (11.5-15.5); WBC 6.9 k/uL (3.8-10.6)
[2020-03-28 17:36] LABS: HGB 8.2 gm/dL (11.4-16.0)
[2020-03-28] MEDS ORDERED: ATORVASTATIN 20 MG TAB PO SCH (18:30)
[2020-03-28] MEDS ORDERED: VITAMIN D3 PO SCH (18:30)
[2020-03-29] MEDS ORDERED: NEBIVOLOL 5 MG TAB PO SCH (08:00)
[2020-03-29 08:29] LABS: Calcium 9.1 mg/dL (8.4-10.2); Potassium 3.7 mmol/L (3.5-5.1)
[2020-03-29 08:37] LABS: HCT 34.7 % (34.0-46.0); MCH 32.6 pg (25.0-35.0); MCHC 33.7 g/dL (31.0-37.0); MCV 96.8 fL (80.0-100.0); Mean Platelet Volume 7.5; Platelet Count 168 k/uL (150-450); RBC 3.59 m/uL (3.80-5.40); RDW 12.4 % (11.5-15.5); WBC 7.8 k/uL (3.8-10.6)
[2020-03-29 08:51] LABS: HGB 11.7 gm/dL (11.4-16.0)
[2020-03-29] MEDS ORDERED: PROPOFOL 10 MG/ML 20 ML VIAL IV ONE (13:56)
[2020-03-29] MEDS ORDERED: IV FLUID CONTINUATION 1,000 ML IV ONE (13:57)
--- NOTE | 2020-03-29 14:17 | P.PCN ---
Date of Procedure: 03/29/20 Procedure(s) Performed: BRIEF HISTORY: Patient is a 85-year-old pleasant female admitted hospital with rectal bleeding for the last 3-4 days duration. Hemoglobin is at 12 g/dL. She is scheduled for colonoscopy to evaluate further. PROCEDURE PERFORMED: Colonoscopy with biopsy and snare polypectomy. PREOPERATIVE DIAGNOSIS: Rectal bleeding for 3-4 days duration. IV sedation per Anesthesia. PROCEDURE: After informed consent was obtained, the patient, was brought into the endoscopy unit. IV sedation was administered by Anesthesia under continuous monitoring. Digital rectal examination was normal. Initially the Olympus CF-160 flexible video colonoscope was then inserted in the rectum, gradually advanced into the cecum without any difficulty. Careful examination was performed as the scope was gradually being withdrawn. Ileocecal valve and the appendiceal orifice were visualized and appeared normal. Prep was excellent. Mucosa of the cecum appeared normal. In the ascending colon there was a 1.5 cm broad-based polyp that was removed by piecemeal snare polypectomy. Rest of the, ascending colon, transverse colon appeared normal. There was segmental colitis involving the sigmoid colon and distal descending colon extending from 30-45 cm from the anal verge with mucosal erythema and friability and congested appearing mucosa consistent with acute ischemic colitis. Biopsies were done from this area. Scattered sigmoid diverticulosis seen. The rectum appeared normal. Retroflexion was performed in the rectum and no lesions were seen. The patient tolerated the procedure well. IMPRESSION: 1.Segmental colitis involving the sigmoid colon and distal descending colon extending from 30 to 45 cm from the anal verge with mucosal erythema, friability and congestion consistent with acute ischemic colitis 2. Scattered sigmoid diverticulosis 3. 1.5 cm broad-based ascending colon polyp status post-polypectomy 4. Grade 2 internal hemorrhoids RECOMMENDATIONS: Findings of this examination were discussed with the patient . Diet will be advanced as tolerated. She was advised to follow with the biopsy results. She can be discharged home today with outpatient follow-up in 2-3 weeks..
--- NOTE | 2020-03-29 15:44 | P.DS ---
Providers Date of admission: 03/28/20 10:04 Expected date of discharge: 03/29/20 Attending physician: Brennen Gann Consults: 03/28/20 10:05 Consult Physician Routine Consulting Provider: Comfort Sands Consult Reason/Comments: Gi bleed Do you want consulting provider notified?: Yes Primary care physician: Brennen Gann [facility] Course: This pleasant 85 year old female who presented to the hospital after having a recent ER visit for blood in her stool, she was instructed to return if she had another episode and she did and was admitted to the hospital for a work up. She had a GI consult she underwent a colonoscopy which found her to have: 1) sigmoid and distal descending segmental colitis from 30-45cm from anal verge with mucosal erythema, friability, and congestion consistent with acute ischemic colitis; 2) scattered sigmoid diverticulosis; 3) 1.5cm broad based ascending colon polyp s/p polypectomy; 4) grade 2 internal hemorrhoids. She tolerated procedure and is to follow up with Dr. Sands in 2-3 weeks for biopsy results Assessment: Acute lower GI Bleed Sigmoid and distal descending segmental colitis Acute schemic colitis Scattered sigmoid diverticulosis Ascending colon polyp status post polypectomy Grade 2 internal hemorrhoids GERD Hypertension Hyperlipidemia Health Concerns: Ongoing complex medical diagnosis Procedures: Colonoscopy Patient Condition at Discharge: Stable Plan - Discharge Summary Discharge Rx Participant: No New Discharge Prescriptions: Continue Atorvastatin [Lipitor] 20 mg PO PC-SUPPER lisinopriL [Zestril] 2.5 mg PO DAILY@0800 Nebivolol HCl [Bystolic] 10 mg PO DAILY@0800 Esomeprazole Magnesium 20 mg PO AC-SUPPER Vitamin D3(Unknown) 1 tab PO PC-SUPPER Vitamin C(Unknown) 1 tab PO PC-SUPPER [place]-3 Fatty Acids/Fish Oil [Fish Oil 1,000 mg Softgel] 1 cap PO PC-SUPPER Garlic 1 tab PO PC-SUPPER Discharge Medication List Atorvastatin [Lipitor] 20 mg PO PC-SUPPER 03/28/20 [History] Esomeprazole Magnesium 20 mg PO AC-SUPPER 03/28/20 [History] Garlic 1 tab PO PC-SUPPER 03/28/20 [History] Nebivolol HCl [Bystolic] 10 mg PO DAILY@0800 03/28/20 [History] [place]-3 Fatty Acids/Fish Oil [Fish Oil 1,000 mg Softgel] 1 cap PO PC-SUPPER 03/28/20 [History] Vitamin C(Unknown) 1 tab PO PC-SUPPER 03/28/20 [History] Vitamin D3(Unknown) 1 tab PO PC-SUPPER 03/28/20 [History] lisinopriL [Zestril] 2.5 mg PO DAILY@0800 03/28/20 [History] Follow up Appointment(s)/Referral(s): Brennen Gann MD [Primary Care Provider] - 1-2 days Comfort Sands MD [STAFF PHYSICIAN] - 3 Weeks (f/u 2-3 weeks) Discharge Disposition: HOME SELF-CARE
[2020-03-29 15:54] VITALS: BP 155/88; PULSE 75; TEMP 98.1
[2020-03-29] MEDS ORDERED: PANTOPRAZOLE 40 MG TABLET PO SCH (17:30)
== END 2020-03-29 18:26 | disposition home or self-care (01) ==
LOC: EC 09:10 → 1SOBS 10:04
PROVIDERS: ADMIT Family Medicine; ATTEND Family Medicine
DX: D12.2 Benign neoplasm of ascending colon (principal); K57.30 Diverticulosis of large intestine without perforation or abscess without bleeding; K64.1 Second degree hemorrhoids; K55.039 Acute (reversible) ischemia of large intestine, extent unspecified; K92.2 Gastrointestinal hemorrhage, unspecified; K21.9 Gastro-esophageal reflux disease without esophagitis; E78.5 Hyperlipidemia, unspecified; I10 Essential (primary) hypertension; Z90.710 Acquired absence of both cervix and uterus; Z98.890 Other specified postprocedural states; Z79.899 Other long term (current) drug therapy
CPT/HCPCS: 96361; 96374; 99285; 36415; 88305; 80053; 80048; 83605; 84484; 85025; 85027; 85610; 85730; 45385; G0378 ×2; J2704; C9113

== ENCOUNTER → 2022-10-17 | Outpatient (CLI) | payer MEDICARE, OTHER ==
[2022-10-17 17:35] LABS: ALT 52 U/L (8-44); AST 36 U/L (13-35); Albumin 4.6 d/dL (3.8-4.9); Albumin/Globulin Ratio 1.84 Ratio (1.60-3.17); Alkaline Phosphatase 67 U/L (41-126); BUN/Creat Ratio 14.64 Ratio (12.00-20.00); Blood Urea Nitrogen 16.1 mg/dL (9.0-27.0); Calcium 9.9 mg/dL (8.7-10.3); Carbon Dioxide 27.1 mmol/L (21.6-31.8); Chloride 104 mmol/L (96-109); Chol/HDL Ratio 2.91 Ratio; Globulin 2.5 d/dL (1.6-3.3); Glucose 104 mg/dL (70-110); LDL Cholesterol,Calculated 87.9 mg/dL (0.0-131.0); Potassium 5.2 mmol/L (3.5-5.5); Sodium 143 mmol/L (135-145); Total Bilirubin 0.5 mg/dL (0.3-1.2); Total Protein 7.1 d/dL (6.2-8.2); VLDL Calculation 17.78 mg/dL (5.00-40.00)
[2022-10-17 17:51] LABS: Basophils # (A) 0.02 X 10*3/uL (0.00-0.10); Basophils % (A) 0.3 %; Eosinophils # (A) 0.13 X 10*3/uL (0.04-0.35); HCT 38.7 % (37.2-46.3); HGB 13.1 d/dL (12.0-15.0); Lymphocytes # (A) 1.91 X 10*3/uL (0.90-5.00); Lymphocytes % (A) 28.8 %; MCH 32.8 pg (27.0-32.0); MCHC 33.9 d/dL (32.0-37.0); Mean Platelet Volume 10.7 FL (9.5-12.2); Monocytes # (A) 0.51 X 10*3/uL (0.20-1.00); Monocytes % (A) 7.7 %; NRBC Per 100 WBC 0 X 10*3/uL (0.00-0.01); Neutrophils # (A) 4.04 X 10*3/uL (1.80-7.70); Neutrophils % (A) 60.9 %; Platelet Count 170 X 10*3/uL (140-440); RBC 3.99 X 10*6/uL (4.10-5.20); RDW 11.9 % (11.5-14.5); WBC 6.63 X 10*3/uL (4.50-10.00)
== END | disposition home or self-care (01) ==
LOC: LABWHC1 08:26
PROVIDERS: ATTEND Family Medicine
DX: E11.69 Type 2 diabetes mellitus with other specified complication (principal)
CPT/HCPCS: 36415; 80053; 80061; 83036; 85025

== ENCOUNTER → 2023-06-21 | Outpatient (CLI) | payer MEDICARE, OTHER ==
--- NOTE | 2023-06-22 20:18 | CA ---
Transthoracic Echo Report Name: Sue Khan Age: 88 Gender: F : 1935 Exam Date: 06/21/2023 13:40 Exam Location: [facility] Ht (in): 60 Wt (lb): 119 Ordering Physician: Brennen Gann MD Attending/Referring Phys: Eleanor Estrada [facility] Guide Dog [employer] Instructor Isabelle Clark [employer] Procedure CPT: Indications: R94.31 ABNORMAL ELECTROCARDIOGRAM [ECG] [EKG] Cardiac Hx: Technical Quality: Good Contrast 1: Total Dose (mL): Contrast 2: Total Dose (mL): MEASUREMENTS (Male / Female) Normal Values 2D ECHO LV Diastolic Diameter PLAX 4.1 cm 4.2 - 5.9 / 3.9 - 5.3 cm LV Systolic Diameter PLAX 2.8 cm IVS Diastolic Thickness 0.7 cm 0.6 - 1.0 / 0.6 - 0.9 cm LVPW Diastolic Thickness 0.7 cm 0.6 - 1.0 / 0.6 - 0.9 cm LV Relative Wall Thickness 0.3 RV Internal Dim ED PLAX 3.0 cm LVOT Diameter 2.0 cm LV Diastolic Volume MOD BP 73.4 cm??? 67 - 155 / 56 - 104 cm??? LV Systolic Volume MOD BP 26.4 cm??? 22 - 58 / 19 - 49 cm??? LV Ejection Fraction MOD BP 64.0 % >= 55 % LV Cardiac Index MOD BP 2100.9 cm???/min???m??? LV Diastolic Volume MOD 4C 66.1 cm??? LV Systolic Volume MOD 4C 23.1 cm??? LV Ejection Fraction MOD 4C 65.0 % LV Cardiac Index MOD 4C 1919.7 cm???/min???m??? LV Diastolic Length 4C 7.0 cm LV Systolic Length 4C 6.0 cm LV Diastolic Volume MOD 2C 79.0 cm??? LV Systolic Volume MOD 2C 28.5 cm??? LV Ejection Fraction MOD 2C 63.9 % LV Cardiac Index MOD 2C 2259.0 cm???/min???m??? LV Diastolic Length 2C 7.3 cm LV Systolic Length 2C 6.3 cm LA Volume 62.7 cm??? 18 - 58 / 22 - 52 cm??? LA Volume Index 41.2 cm???/m??? 16 - 28 cm???/m??? Ascending Aorta Diameter 3.0 cm DOPPLER AV Peak Velocity 95.3 cm/s AV Peak Gradient 3.6 mmHg AV Mean Velocity 73.8 cm/s AV Mean Gradient 2.3 mmHg AV Velocity Time Integral 23.3 cm LVOT Peak Velocity 70.9 cm/s LVOT Peak Gradient 2.0 mmHg LVOT Velocity Time Integral 18.2 cm LVOT Stroke Volume 56.7 cm??? LVOT Stroke Volume Index 37.8 ml/m??? LVOT Cardiac Index 2534.5 cm???/min???m??? AV Area Cont Eq vti 2.4 cm??? AV Area Cont Eq pk 2.3 cm??? Mitral E Point Velocity 66.9 cm/s Mitral A Point Velocity 88.0 cm/s Mitral E to A Ratio 0.8 MV Deceleration Time 219.4 ms MV E' Velocity 2.9 cm/s Mitral E to MV E' Ratio 23.3 TR Peak Velocity 274.2 cm/s TR Peak Gradient 30.1 mmHg Right Ventricular Systolic Press 40.1 mmHg PV Peak Velocity 61.4 cm/s PV Peak Gradient 1.5 mmHg FINDINGS Left Ventricle Left ventricular ejection fraction is estimated at 60-65 %. Left ventricular wall thickness normal. Left ventricular cavity size normal. No obvious regional wall motion abnormalities. Right Ventricle Normal right ventricular size and function. Mildly increased right ventricular systolic pressure. Right Atrium Normal right atrial size. Left Atrium Mildly increased left atrial volume. Mitral Valve Mitral valve thickened. Mitral annular calcification. No evidence for mitral valve prolapse. No mitral stenosis. Mild mitral regurgitation. Aortic Valve Trileaflet aortic valve. Focal thickening of the aortic valve cusps. No aortic stenosis. Trace aortic regurgitation. Tricuspid Valve Structurally normal tricuspid valve. No tricuspid stenosis. Mild tricuspid regurgitation. Pulmonic Valve Structurally normal pulmonic valve. No pulmonic stenosis. Mild pulmonic regurgitation. Pericardium No pericardial effusion. Aorta Normal size aortic root and proximal ascending aorta. CONCLUSIONS Left ventricular ejection fraction is estimated at 60-65 %. No obvious regional wall motion abnormalities. Normal right ventricular size and function. Mild MR and Mild TR No pericardial effusion. Previewed by: Dr Robert Mills (Electronically Signed) Final Date: 22 June 2023 20:16
== END | disposition home or self-care (01) ==
LOC: RADECHMAIN 13:21
PROVIDERS: ATTEND Family Medicine
DX: I34.0 Nonrheumatic mitral (valve) insufficiency (principal); I36.1 Nonrheumatic tricuspid (valve) insufficiency; R94.31 Abnormal electrocardiogram [ECG] [EKG]
CPT/HCPCS: 93306